=== PATIENT | male | born 1950 | race Caucasian/White ===

== ENCOUNTER 2023-05-12 08:29 | Day surgery (SDC) | payer MEDICARE, SELFPAY ==
--- NOTE | 2023-05-12 | GASB_PTH ---
PATIENT: JAIRO CELIS LOC: EN U#:[id number] AGE/SX: 72/M ROOM: RE05/12/[address]: Dr. Maranda Elizondo MD : 1950 BED: DIS: 05/12/2023 SPEC #: [id number] RECD: 05/12/23 13:50 STATUS: MOE [place] #: [id number] JADA: 05/12/23 00:[address]: Maranda Elizondo DEPT: SURGICAL PATHOLOGY RECD BY: Sowmya Green ENTERED: 05/12/23 13:50 SP TYPE: Gastric Bx OTHR DR: GARETH Kirby Tissues: Gastric mucous membrane Procedures: Surgery Specimen Level IV HEADER OPERATION: Colonoscopy, EGD, biopsy PRE-OP DIAGNOSIS: Anemia, acid reflux TISSUE SUBMITTED: Antrum biopsy for histo and H. pylori MICROSCOPIC DIAGNOSIS Gastric antrum, biopsy: Minimal chronic inflammation. AM:xavi 05/13/2023 COMMENT The results of immunohistochemistry for Helicobacter pylori will be reported separately ([id number]). MICROSCOPIC DESCRIPTION Slides are reviewed. GROSS DESCRIPTION Received in fixative is one container labeled with the patient's name and designated antrum biopsy. The specimen consists of one irregular fragment of light colbert soft tissue that measures 0.5 x 0.3 x 0.2 cm. The specimen is totally submitted in one cassette. / SJ:xavi 05/12/2023 TC:3 CPT: 50515
--- NOTE | 2023-05-12 08:46 | H&P.OPEN ---
HPI - General General Date of Service: 05/12/23 HPI Narrative JAIRO CELIS, is a 72 M who presents for EGD and colonoscopy due to anemia. Patient denies any blood in his stool states his stools are still brown. Patient is currently on iron due to his anemia per PCP. Patient denies any further checks of hemoglobin. Patient states his GERD is still controlled with his medication. Patient denies any abdominal pain. office visit 03/27/23 [facility] HPI: 72-year-old male presents for EGD and colonoscopy due to anemia. Patient's last colonoscopy was in 2015 which did show tubular adenoma patient was told 10 years. Patient's brother have a metastatic deposit of cancer to the colon from another primary. Otherwise no family history. Patient has bowel movements daily denies any blood. Patient denies any chronic abdominal pain/nausea/vomiting. Patient has been on Pepcid/Prilosec for his reflux which has been well controlled for about 4 to 5 years. Patient reports never having EGD. Patient's most current hemoglobin is 9.7 unsure patient's previous hemoglobin reported as they were done at outside office/facility. [facility] Medical History (Updated 05/07/23 @ 10:10 by Shona Arroyo) Alcohol use Arthritis Back pain Cardiology follow-up encounter Chronic cough CPAP (continuous positive airway pressure) dependence Difficulty swallowing Easy bruising Gastric reflux High cholesterol History of echocardiogram History of irregular heartbeat History of pain when walking Injury of head and neck Leg cramps Loose, teeth Loss of hearing Low iron Restless legs Smoker Wears glasses Home Medications ascorbic acid (vitamin C) 500 mg capsule 500 mg PO DAILY 03/27/23 [History Last Taken Unknown] aspirin 81 mg tablet,delayed release 81 mg PO DAILY 03/27/23 [History Last Taken Unknown] atorvastatin 40 mg tablet 40 mg PO DAILY 03/27/23 [History Last Taken Unknown] cholecalciferol (vitamin D3) 250 mcg (10,000 unit) capsule 1,000 mcg PO DAILY 03/27/23 [History Last Taken Unknown] coenzyme Q10 75 mg capsule (Ultra CoQ10) 200 mg PO DAILY 03/27/23 [History Last Taken Unknown] cyanocobalamin (vitamin B-12) 1,000 mcg capsule 1,000 mcg PO DAILY 03/27/23 [History Last Taken Unknown] famotidine 10 mg tablet 10 mg PO DAILY 03/27/23 [History Last Taken Unknown] ferrous sulfate 325 mg (65 mg iron) tablet (Feosol) 325 mg PO DAILY 03/27/23 [History Last Taken Unknown] lansoprazole 15 mg capsule,delayed release (Prevacid 24Hr) 15 mg PO DAILY 03/27/23 [History Last Taken Unknown] tumeric 100 mg-karin 150 mg-olive 50 mg-oreg 150 mg-caprylate capsule 1 cap PO DAILY 03/27/23 [History Last Taken 05/05/23] vitamin E (dl, acetate) 180 mg (400 unit) capsule 180 mg PO DAILY 03/27/23 [History Last Taken Unknown] psyllium husk 3.4 gram/5.4 gram oral powder (Metamucil) 1 tbsp PO DAILY 05/07/23 [History Last Taken Unknown] Allergy/AdvReac Type Severity Reaction Status Date / Time No Known Allergies Allergy Verified 05/07/23 09:57 Surgical History (Updated 05/07/23 @ 10:10 by Shona Arroyo) H/O heart artery stent History of cardiac catheterization Hx of colonoscopy Social History (Updated 03/27/23 @ 12:55 by Cheyanne Looney) Smoking Status: Current every day smoker tobacco type: cigarettes alcohol intake: current substance use type: does not use Past Medical/Surgical History Planned Operation Planned Operative Procedure/s: EGD/CSCOPE Previous Hospitalizations/Surgeries HX Hospitalizations: No Any Problems With Anesthesia: No You/Your Family Experience Fever (Hyperthermia) With Anes: No Cholinesterase deficiency: No Cardiovascular Hx Hypertension: No Respiratory Hx Sleep Apnea: Yes CPAP: Yes (HASNT USED IN MANY YRS) BIPAP: No Hx Respiratory Tract Infection/Cold (presently): No Result (for STOP score): Positive Smoking Status: Current every day smoker Neurological Does patient have nerve stimulator: No Reproduction : No Allergies No Known Allergies Allergy (Verified 05/07/23 09:57) Discharge Is Pt Admitted From a Penitentiary, or a Retirement: No After D/C, Where Do you Plan to Go: Return Home Physical Exam Const alert, oriented x3 and no apparent distress HEENT normocephalic and head/scalp atraumatic Resp normal respiratory effort Cardio regular rate GI soft to palpation and non-tender; Negative for non-distended Palpation: Negative for guarding Extremity no clubbing, cyanosis or edema Skin no rashes or lesions noted Neuro CN's II-XII intact bilaterally Psych mental status grossly normal Assessment & Plan Assessment/Plan (1) Anemia: (2) Acid reflux: Surgery Risks - Colonoscopy I discussed with the patient the risks of the procedure: Yes Risks Include but are not Limited To: Plan for an EGD and colonoscopy risks include but are not limited to: Bleeding, perforation requiring further surgery, inability to complete colonoscopy requiring barium enema.
[2023-05-12] MEDS: Lactated Ringers 1,000 ML 15 ML IV (09:09)
[2023-05-12 09:10] VITALS: BP 113/80; PULSE 78; RESP 18; TEMP 36.6; O2SAT 98; BMI 24.7
--- NOTE | 2023-05-12 10:00 | IMM_PTH ---
PATIENT: JAIRO CELIS LOC: EN U#:[id number] AGE/SX: 72/M ROOM: RE05/12/[address]: Dr. Maranda Elizondo MD : 1950 BED: DIS: 05/12/2023 SPEC #: [id number] RECD: 05/12/23 14:33 STATUS: MOE REQ #: [id number] JADA: 05/12/23 10:[address]: Maranda Elizondo DEPT: IMMUNOHISTOCHEMISTRY RECD BY: Madeline Liu ENTERED: 05/12/23 14:34 SP TYPE: IMMUNO OTHR DR: GARETH Kirby Tissues: Stomach, NOS Procedures: H Pylori (initial) PHYSICIAN & INSTITUTION [place] [id number] SPECIMEN INFORMATION: Tissue Source: Antrum Clinical Info: Anemia, acid reflux Specimen Number: [id number] CPT code: 33478 METHODOLOGY: Deparaffinized sections of prefer/formalin-fixed tissue or PAP/DQ stained slides are incubated with monoclonal/polyclonal antibodies/oligonucleotide probes. Localization is made via biotin free immunoperoxidase method. Appropriate controls are performed and reacted as expected. Results on target cell population are indicated in the following table: RESULTS: ANTIBODY / CLONE RESULT H Pylori (polyclonal) negative These tests were developed and their performance characteristics determined by [facility]. They may not have been cleared or approved by the U.S. Food and Drug Administration. The FDA has determined that such clearance or approval is not necessary. The above immunohistochemical/dualISH markers are ordered and reviewed by the Pathologist. INTERPRETATION: Antrum, biopsy: Negative for Helicobacter pylori organisms. AM:xavi 05/13/2023
--- NOTE | 2023-05-12 10:03 | OP.CCLET_ITS ---
05/12/2023 Terrence Kirby Re : Upper GI endoscopy procedure for Pratik Ascencio Dear Marcos This procedure was performed on Friday, May 12, 2023. My impressions and recommendations are as follows: Impressions : - Z-line regular, 40 cm from the incisors. - Normal examined duodenum. - Erythematous mucosa in the antrum. Biopsied. Recommendations : - Await pathology results. - Discharge patient to home. - Resume previous diet. - Continue present medications. My findings are described in the full procedure note, which is enclosed. If I can be of further assistance, please feel free to contact me at Doctor phone number(s): , Work: . Sincerely, MD Maranda Reyez MD 05/12/2023 10:02:24 AM This report has been signed electronically.
--- NOTE | 2023-05-12 10:03 | OP.EGD_ITS ---
Patient Name: Pratik Ascencio Procedure Date: 05/12/2023 9:30 AM Date of : 1950 Age: 72 Procedure: Upper GI endoscopy Indications: Iron deficiency anemia Providers: Maranda Elizondo MD Referring MD: Terrence Kirby Medicines: Monitored Anesthesia Care Patient Profile: This is a 72 year old male. Complications: No immediate complications. Procedure: Pre-Anesthesia Assessment: - Prior to the procedure, a History and Physical was performed, and patient medications and allergies were reviewed. The patient's tolerance of previous anesthesia was also reviewed. The risks and benefits of the procedure and the sedation options and risks were discussed with the patient. All questions were answered, and informed consent was obtained. Prior Anticoagulants: The patient has taken no anticoagulant or antiplatelet agents. ASA Grade Assessment: Per anesthesia. After reviewing the risks and benefits, the patient was deemed in satisfactory condition to undergo the procedure. After obtaining informed consent, the endoscope was passed under direct vision. Throughout the procedure, the patient's blood pressure, pulse, and oxygen saturations were monitored continuously. The Colonoscope was introduced through the mouth, and advanced to the second part of duodenum. The upper GI endoscopy was accomplished without difficulty. The patient tolerated the procedure well. Scope In: 9:38:29 AM Scope Out: 9:42:50 AM Total Procedure Duration Time 0 hours 4 minutes 21 seconds Findings: The Z-line was regular and was found 40 cm from the incisors. The cardia and gastric fundus were normal on retroflexion. The examined duodenum was normal. Mildly erythematous mucosa without bleeding was found in the gastric antrum. Biopsies were taken with a cold forceps for histology. Biopsies were taken with a cold forceps for Helicobacter pylori cultures. Impression: - Z-line regular, 40 cm from the incisors. - Normal examined duodenum. - Erythematous mucosa in the antrum. Biopsied. Recommendation: - Await pathology results. - Discharge patient to home. - Resume previous diet. - Continue present medications. Procedure Code(s): --- Professional --- 84015, Esophagogastroduodenoscopy, flexible, transoral; with biopsy, single or multiple Diagnosis Code(s): --- Professional --- K31.89, Other diseases of stomach and duodenum D50.9, Iron deficiency anemia, unspecified CPT copyright 2021 [employer]. All rights reserved. The codes documented in this report are preliminary and upon electrotherapist review may be revised to meet current compliance requirements. MD Maranda Reyez MD 05/12/2023 10:02:24 AM This report has been signed electronically. Number of Addenda: 0 Note Initiated On: 05/12/2023 9:30 AM
[2023-05-12 10:05] VITALS: BP 109/91; BP 113/80; PULSE 82; RESP 16; TEMP 36.6; O2SAT 98
--- NOTE | 2023-05-12 10:06 | OP.COLON_ITS ---
Patient Name: Pratik Ascencio Procedure Date: 05/12/2023 9:43 AM Date of : 1950 Age: 72 Procedure: Colonoscopy Indications: Iron deficiency anemia Providers: Maranda Elizondo MD Referring MD: Terrence Kirby Medicines: Monitored Anesthesia Care Patient Profile: This is a 72 year old male. This is a 72 year old male. Last Colonoscopy: 2015. Complications: No immediate complications. Procedure: Pre-Anesthesia Assessment: - Prior to the procedure, a History and Physical was performed, and patient medications and allergies were reviewed. The patient's tolerance of previous anesthesia was also reviewed. The risks and benefits of the procedure and the sedation options and risks were discussed with the patient. All questions were answered, and informed consent was obtained. Prior Anticoagulants: The patient has taken no anticoagulant or antiplatelet agents. ASA Grade Assessment: Per anesthesia. After reviewing the risks and benefits, the patient was deemed in satisfactory condition to undergo the procedure. - Prior to the procedure, a History and Physical was performed, and patient medications and allergies were reviewed. The patient's tolerance of previous anesthesia was also reviewed. The risks and benefits of the procedure and the sedation options and risks were discussed with the patient. All questions were answered, and informed consent was obtained. Prior Anticoagulants: The patient has taken no anticoagulant or antiplatelet agents except for aspirin. ASA Grade Assessment: Per anesthesia. After reviewing the risks and benefits, the patient was deemed in satisfactory condition to undergo the procedure. After I obtained informed consent, the scope was passed under direct vision. Throughout the procedure, the patient's blood pressure, pulse, and oxygen saturations were monitored continuously. The Colonoscope was introduced through the anus and advanced to the cecum, identified by the ileocecal valve. The colonoscopy was performed without difficulty. The patient tolerated the procedure well. The quality of the bowel preparation was good. Scope In: 9:44:06 AM Scope Withdrawal Time 0 hours 9 minutes 50 seconds Scope Out: 9:57:16 AM Total Procedure Duration Time 0 hours 13 minutes 10 seconds Findings: The perianal and digital rectal examinations were normal. Scattered small-mouthed diverticula were found in the entire colon. The exam was otherwise without abnormality on direct and retroflexion views. Impression: - Diverticulosis in the entire examined colon. - The examination was otherwise normal on direct and retroflexion views. - No specimens collected. Recommendation: - Discharge patient to home. - High fiber diet. - Continue present medications. - Repeat colonoscopy in 10 years for screening purposes. Procedure Code(s): --- Professional --- 99115, Colonoscopy, flexible; diagnostic, including collection of specimen(s) by brushing or washing, when performed (separate procedure) Diagnosis Code(s): --- Professional --- D50.9, Iron deficiency anemia, unspecified K57.30, Diverticulosis of large intestine without perforation or abscess without bleeding CPT copyright 2021 [employer]. All rights reserved. The codes documented in this report are preliminary and upon soldering machine operator review may be revised to meet current compliance requirements. MD Maranda Reyez MD 05/12/2023 10:06:26 AM This report has been signed electronically. Number of Addenda: 0 Note Initiated On: 05/12/2023 9:43 AM
--- NOTE | 2023-05-12 10:07 | OP.CCLET_ITS ---
05/12/2023 Terrence Kirby Re : Colonoscopy procedure for Pratik Ascencio Dear Marcos This procedure was performed on Friday, May 12, 2023. My impressions and recommendations are as follows: Impressions : - Diverticulosis in the entire examined colon. - The examination was otherwise normal on direct and retroflexion views. - No specimens collected. Recommendations : - Discharge patient to home. - High fiber diet. - Continue present medications. - Repeat colonoscopy in 10 years for screening purposes. My findings are described in the full procedure note, which is enclosed. If I can be of further assistance, please feel free to contact me at Doctor phone number(s): , Work: . Sincerely, MD Maranda Reyez MD 05/12/2023 10:06:26 AM This report has been signed electronically.
[2023-05-12 10:10] VITALS: BP 103/66; BP 113/80; PULSE 60; RESP 16; O2SAT 97
[2023-05-12 10:15] VITALS: BP 113/80; BP 116/66; PULSE 64; RESP 16; O2SAT 99
[2023-05-12 10:20] VITALS: BP 113/80; BP 120/66; PULSE 56; RESP 16; TEMP 36.1; O2SAT 95
[2023-05-12 10:36] VITALS: BP 113/80
== END 2023-05-12 10:48 | disposition home or self-care (01) ==
LOC: EN 08:32 → AC 08:33
PROVIDERS: PCP Physician Assistant; Referring Provider Physician Assistant; Visit Provider Surgery
PROC: 0DJD8ZZ Inspection of Lower Intestinal Tract, Via Natural or Artificial Opening Endoscopic (ICD-10-PCS; CPT 45378; principal; 2023-05-12 09:55)
DX: K29.50 Unspecified chronic gastritis without bleeding (principal); K21.9 Gastro-esophageal reflux disease without esophagitis; K57.30 Diverticulosis of large intestine without perforation or abscess without bleeding; E78.00 Pure hypercholesterolemia, unspecified; F17.210 Nicotine dependence, cigarettes, uncomplicated; D50.9 Iron deficiency anemia, unspecified; Z79.899 Other long term (current) drug therapy; Z79.82 Long term (current) use of aspirin
CPT/HCPCS: 45378; 43239; 88305; 88342; J7120; J2405